=== PATIENT | male | born 1965 | race Caucasian/White ===

== ENCOUNTER 2024-01-06 10:05 | Emergency (ER) | payer BC, OTHER ==
[2024-01-06] MEDS ORDERED: Lidocaine 1% PF 5 ML VIAL ONE (10:17)
== END 2024-01-06 10:55 | disposition home or self-care (01) ==
LOC: MADERS 10:05
DX: S60.450A Superficial foreign body of right index finger, initial encounter (principal); W45.8XXA Other foreign body or object entering through skin, initial encounter
CPT/HCPCS: 20520; 99283